=== PATIENT | male | born 1975 | race Two or more races ===

== ENCOUNTER 2016-06-14 10:07 | Emergency (ER) | payer MEDICAID ==
[2016-06-14] MEDS ORDERED: NS 1,000 ML IV ONE ×2 (11:05→11:58)
[2016-06-14] MEDS ORDERED: ONDANSETRON 4 MG/2 ML VIAL IVP ONE (11:05)
--- NOTE | 2016-06-14 11:12 | EDPHY ---
H & P Stated Complaint: coughing yellow mucuc, sob,body aches HPI/ROS: CHIEF COMPLAINT: Cough, congestion, nausea, right finger pain HISTORY OF PRESENT ILLNESS: several days of cough, congestion, body aches, chills, nausea, vomiting. Symptoms started abruptly. They have been constant ever since. No improvement with [id number]-[id number] medications including antitussives. No neck pain or stiffness. No rashes. No chest pain. No abdominal pain despite the nausea and vomiting. Also has secondary complaint of right finger pain. He says he tripped, landing awkwardly on it "about a week ago." there was moderate pain to the right finger. he says he "tried to fix it myself, you know?" he could not elaborate on this. He says that there is no numbness or tingling of the finger but it is painful and has difficulty straightening the finger. Worse with palpation or movement. Able to flex without limitation. No other associated complaints or modifying factors. REVIEW OF SYSTEMS: Ten systems reviewed and are negative unless otherwise noted in the HPI EXAMINATION General Appearance: Alert, no distress Head: normocephalic, atraumatic Eyes: Pupils equal and round, no conjunctival pallor or injection ENT, Mouth: Mucous membranes moist . Uvula midline. No erythema or edema. Neck: Normal inspection, supple, non-tender . Painless range of motion all planes. No rigidity. No meningismus. Respiratory: Lungs are clear on the left perla. There is rhonchi and sonorous breath sounds on the right side, upper lobes greater than lower lobe. No consolidation or diminishment. No wheezing and either side. Cardiovascular: Tachycardic rate of 104 beats per minute. No murmur. Pulses intact distally. Gastrointestinal: Abdomen is soft and nontender . No tympany rigidity. No CVA tenderness. Back: non-tender, no bony abnormalities Neurological: A&O, nonfocal, normal gait Skin: Warm and dry, no rash Extremities: nontender to the left upper extremity. The right upper extremity has tenderness to the right small finger. There is a flexor deformity of the right small finger PIP. Unable to extend the right finger from the PIP joint distally. Unable to force this passively. Neurovascular intact distal to the injury. Psychiatric: Mood and affect normal DIFFERENTIAL DIAGNOSES: Including but not limited to Influenza, viral illness, pneumonia, right finger fracture, right finger extensor deficit MDM: 11:10 a.m. cough, congestion flu-like symptoms with a secondary complaint of right small finger pain. Patient is actively vomiting in the room at the end of my examination. Originally asked for no laboratory studies or IV, given this he will consent to IV fluid. Chest x-ray has been ordered to rule out pneumonia. X-ray of the finger is also pending. He is in no acute distress. 12:00 p.m. notified by the RN that the patient had a brief episode of 87-88% on room air with good plethysmography. He has been placed on 2 L and remains in no acute distress. Vital signs are within normal limits on 2 L. 12:15 p.m. I have re-evaluated the patient. He is hemodynamically stable and still has the appearance of a viral illness. His influenza swab is negative, but I feel this is a false negative by history and examination. The right finger does exhibit a deficit of the extensor apparatus. I have paged hand surgery to discuss the case. This is over a week old and there is no fracture on the x- ray. 12:35 p.m. I discussed the case with the circulating nurse working with Dr. Bennett, who was scrubbed in to a case. They informed me that the patient can follow up in his office. Patient is to contact the office for an outpatient appointment. No further orders. 12:45 p.m. I have re-evaluated the patient. He has been off oxygen for 30 minutes. There is no desaturation below 91%. His examination is more consistent with influenza despite the negative influenza swab. Discharged home with steroid treatment here, symptomatic medications for home. He is follow up with primary care physician or return to the ER for any worsening symptoms. He is also to follow up with Dr. bennett regarding the right finger extensor deficit. Patient is comfortable with this plan, I have answered all his questions, he is discharged home in stable condition. SUPERVISION: This patient was independently evaluated without the aide of supervising physician. Source: Patient Exam Limitations: No limitations - Personal History Current Tetanus/Diphtheria Vaccine: Unsure Current Tetanus Diphtheria and Acellular Pertussis (TDAP): Unsure - Medical/Surgical History Hx Asthma: No Hx Chronic Respiratory Disease: No Hx Diabetes: No Hx Cardiac Disease: No Hx Renal Disease: No Hx Cirrhosis: No Hx Alcoholism: Yes Hx HIV/AIDS: No Hx Splenectomy or Spleen Trauma: No Other PMH: denies - Social History Smoking Status: Never smoked Constitutional: Initial Vital Signs Temperature (C) 98.1 F 06/14/16 10:16 Heart Rate 108 H 06/14/16 10:16 Respiratory Rate 20 06/14/16 10:16 Blood Pressure 115/84 H 06/14/16 10:16 O2 Sat (%) 94 06/14/16 10:16 O2 Delivery Mode Room Air O2 (L/minute) 2 Allergies/Adverse Reactions: acetaminophen [From Tylenol] Allergy (Verified 09/29/15 14:57) Home Medications: Medication Instructions Recorded oxyCODONE/APAP 5/325 [Percocet 1 - 2 tab PO Q6H PRN #12 tab 09/29/15 5/325] HYDROcodone/HOMATROPINE HYCODA 1 tsp PO Q4-6PRN PRN #120 ml 06/14/16 [Hycodan Syrup (*)] Ondansetron Odt [Zofran Odt 4 mg 4 mg PO Q6 PRN #12 tab 06/14/16 (*)] Medical Decision Making - Data Points Laboratory Results: Laboratory Results 06/14/16 11:04 06/14/16 11:04 06/14/16 06/14/16 06/14/16 11:04 11:04 11:04 WBC 7.67 10^3/uL 10^3/uL (3.80-9.50) RBC 5.26 10^6/uL 10^6/uL (4.40-6.38) Hgb 16.8 g/dL g/dL (13.7-17.5) Hct 47.5 % % (40.0-51.0) MCV 90.3 fL fL (81.5-99.8) MCH 31.9 pg pg (27.9-34.1) MCHC 35.4 g/dL g/dL (32.4-36.7) RDW 12.9 % % (11.5-15.2) Plt Count 247 10^3/uL 10^3/uL (150-400) MPV 10.1 fL fL (8.7-11.7) Neut % (Auto) 60.3 % % (39.3-74.2) Lymph % (Auto) 26.9 % % (15.0-45.0) [place] % (Auto) 11.1 % % (4.5-13.0) Eos % (Auto) 0.9 % % (0.6-7.6) Baso % (Auto) 0.1 % L % (0.3-1.7) Nucleat RBC Rel Count 0.0 % % (0.0-0.2) Absolute Neuts (auto) 4.63 10^3/uL 10^3/uL (1.70-6.50) Absolute Lymphs (auto) 2.06 10^3/uL 10^3/uL (1.00-3.00) Absolute Monos (auto) 0.85 10^3/uL H 10^3/uL (0.30-0.80) Absolute Eos (auto) 0.07 10^3/uL 10^3/uL (0.03-0.40) Absolute Basos (auto) 0.01 10^3/uL L 10^3/uL (0.02-0.10) Absolute Nucleated RBC 0.00 10^3/uL 10^3/uL (0-0.01) Immature Gran % 0.7 % % (0.0-1.1) Immature Gran # 0.05 10^3/uL 10^3/uL (0.00-0.10) Sodium 144 mEq/L mEq/L (134-144) Potassium 4.0 mEq/L mEq/L (3.5-5.2) Chloride 106 mEq/L mEq/L (97-110) Carbon Dioxide 22 mEq/l mEq/l (22-31) Anion Gap 16 mEq/L mEq/L (8-16) BUN 7 mg/dL mg/dL (7-23) Creatinine 0.9 mg/dL mg/dL (0.7-1.3) Estimated GFR > 60 Glucose 102 mg/dL H mg/dL (70-100) Calcium 9.1 mg/dL mg/dL (8.5-10.4) Lipase 300.0 IU/L IU/L (23-300) Influenza Typ A,B (DFA) NEGATIVE FOR FLU (NEGATIVE) Medications Given: Discontinued Medications Albuterol (Proventil Neb) 3 ml IH EDNOW ONE Stop: 06/14/16 11:19 Last Admin: 06/14/16 11:35 Dose: 3 ml Sodium Chloride (Ns) 1,000 mls @ 0 mls/hr IV ONCE ONE PRN Reason: Wide Open Stop: 06/14/16 11:06 Last Admin: 06/14/16 11:05 Dose: 1,000 mls Sodium Chloride (Ns) 1,000 mls @ 0 mls/hr IV ONCE ONE PRN Reason: Wide Open Stop: 06/14/16 11:59 Last Admin: 06/14/16 12:00 Dose: 1,000 mls Ibuprofen (Motrin) 600 mg PO EDNOW ONE Stop: 06/14/16 11:20 Last Admin: 06/14/16 11:35 Dose: 600 mg Ondansetron HCl (Zofran) 4 mg IVP EDNOW ONE Stop: 06/14/16 11:06 Last Admin: 06/14/16 11:05 Dose: 4 mg Departure - Departure Disposition: Home, Routine, Self-Care Clinical Impression: Influenza-like illness, Rupture of extensor tendon of finger, Bronchitis Condition: Good Instructions: Influenza (ED), Tendon Rupture (ED) Additional Instructions: Follow-up with hand surgeon Dr. best over the right finger injury. Follow up with primary care physician for remaining complaints. Return to ER for worsening symptoms, any chest pain or persistent vomiting. Referrals: Sonya High MD [Medical Doctor] - As per Instructions NONE *PRIMARY CARE P,. [Primary Care Provider] - As per Instructions Herbie Bennett MD [Medical Doctor] - As per Instructions Prescriptions: HYDROcodone/HOMATROPINE HYCODA [Hycodan Syrup (*)] 1 tsp PO Q4-6PRN PRN #120 ml PRN Reason: Cough, Mild Ondansetron Odt [Zofran Odt 4 mg (*)] 4 mg PO Q6 PRN #12 tab PRN Reason: Nausea/Vomiting, Use 1st
[2016-06-14] MEDS ORDERED: ALBUTEROL 3 ML DEYVIAL IH ONE (11:18)
[2016-06-14] MEDS ORDERED: IBUPROFEN 600 MG TAB PO ONE (11:19)
[2016-06-14 11:20] LABS: % IMMATURE GRANULYOCYTES 0.7 % (0.0-1.1); ABSOLUTE IMMATURE GRANULOCYTES 0.05 10^3/uL (0.00-0.10); ADD DIFF? NO; ADD MORPH? NO; ADD SCAN? NO; ATYPICAL LYMPHOCYTE FLAG 10 (0-99); FRAGMENT RBC FLAG 0 (0-99); HEMATOCRIT 47.5 % (40.0-51.0); HEMOGLOBIN 16.8 g/dL (13.7-17.5); LEFT SHIFT FLG 0 (0-99); LIPEMIA HEMOLYSIS FLAG 90 (0-99); MEAN CELL HEMOGLOBIN 31.9 pg (27.9-34.1); MEAN CELL HEMOGLOBIN CONCENTR. 35.4 g/dL (32.4-36.7); MEAN CELL VOLUME 90.3 fL (81.5-99.8); MEAN PLATELET VOLUME 10.1 fL (8.7-11.7); PLATELET CLUMPS FLAG 0 (0-99); PLATELET COUNT 247 10^3/uL (150-400); RED BLOOD CELL COUNT 5.26 10^6/uL (4.40-6.38); RED CELL DISTRIBUTION WIDTH 12.9 % (11.5-15.2)
[2016-06-14 11:36] LABS: ANION GAP 16 mEq/L (8-16); CALCIUM 9.1 mg/dL (8.5-10.4); CARBON DIOXIDE 22 mEq/l (22-31); CHLORIDE 106 mEq/L (97-110); CREATININE 0.9 mg/dL (0.7-1.3); GLOMERULAR FILTRATION RATE > 60; GLUCOSE 102 mg/dL (70-100); SODIUM 144 mEq/L (134-144)
[2016-06-14 11:37] VITALS: TEMP 98.2
[2016-06-14] MEDS ORDERED: DEXAMETHASONE 10 MG/ML VIAL IVP ONE (12:27)
[2016-06-14 12:47] VITALS: BP 122/71; PULSE 94; RESP 18; O2SAT 91
== END 2016-06-14 13:00 | disposition home or self-care (01) ==
DX: J11.1 Influenza due to unidentified influenza virus with other respiratory manifestations (principal); J40 Bronchitis, not specified as acute or chronic; S56.417A Strain of extensor muscle, fascia and tendon of right little finger at forearm level, initial encounter; W18.41XA Slipping, tripping and stumbling without falling due to stepping on object, initial encounter
CPT/HCPCS: 96374; J2405

== ENCOUNTER 2017-04-26 19:38 | Inpatient (IN) | payer MEDICAID ==
--- NOTE | 2017-04-26 19:51 | EDPHY ---
H & P Time Seen by Provider: 04/26/17 19:47 HPI/ROS: CHIEF COMPLAINT: Full trauma activation, ground level fall, neck pain, back pain, right-sided weakness HISTORY OF PRESENT ILLNESS: The patient presents the ED as a full trauma activation. The patient reportedly was being booked into skilled nursing when he experienced a ground level fall onto his back. He did not lose consciousness. The patient was brought in as a full trauma activation secondary to complaints of paresthesias in his arms and legs. Upon arrival in the emergency department the patient reports primarily right-sided weakness and paresthesias. The patient complains of a mild occipital headache. He denies any chest or abdominal pain. The patient denies significant past medical history. The patient does not take blood thinners. REVIEW OF SYSTEMS: A comprehensive 10 point review of systems is otherwise negative aside from elements mentioned in the history of present illness. Source: Patient Exam Limitations: No limitations - Medical/Surgical History Hx Asthma: No Hx Chronic Respiratory Disease: No Hx Diabetes: No Hx Cardiac Disease: No Hx Renal Disease: No Hx Cirrhosis: No Hx Alcoholism: Yes Hx HIV/AIDS: No Hx Splenectomy or Spleen Trauma: No Other PMH: denies - Social History Smoking Status: Never smoked - Physical Exam Exam: General Appearance: Alert, no distress Head: Atraumatic Eyes: Pupils equal, round, reactive ENT, Mouth: No hemotympanum, no oral trauma Neck: Cervical collar prior upon arrival, tenderness to palpation throughout the cervical spine Respiratory: No chest wall tender, subcutaneous air, lungs clear bilaterally Cardiovascular: Regular rate and rhythm Abdomen: Abdomen is soft and nontender, pelvis stable Skin: No lacerations, No abrasion Back: When patient was rolled with spinal mobilization tenderness to palpation was noted in the T and L-spine Extremities: Nontender, full range of motion Neurological: Alert and oriented x4, patient has 5/5 strength in his left upper lower extremity, patient has 4/5 strength in his right upper extremity. The patient reports decreased sensation to sharp touch in the right upper and lower extremity. Allergies/Adverse Reactions: acetaminophen [From Tylenol] Allergy (Verified 09/29/15 14:57) Home Medications: Medication Instructions Recorded oxyCODONE/APAP 5/325 [Percocet 1 - 2 tab PO Q6H PRN #12 tab 09/29/15 5/325] HYDROcodone/HOMATROPINE HYCODA 1 tsp PO Q4-6PRN PRN #120 ml 06/14/16 [Hycodan Syrup (*)] Ondansetron Odt [Zofran Odt 4 mg 4 mg PO Q6 PRN #12 tab 06/14/16 (*)] Medical Decision Making - Diagnostics Imaging Results: Imaging Impressions Cervical Spine CT 04/26/17 19:48 Impression: Head CT: 1. No acute intracranial abnormalities. Cervical Spine: 1. Vertically oriented lucency through the right lateral mass of C7 may represent a subtle nondisplaced fracture. 2. Cannot exclude ligament, spinal cord and/or vascular abnormalities on this exam. If there is persistent pain or neurologic deficit, consider MRI and/or flexion and extension radiographs of the cervical spine. Dr. Ashford discussed these findings in person with surgeon Dr. Macario on 2017 immediately following the scan. Head CT 04/26/17 19:48 Impression: Head CT: 1. No acute intracranial abnormalities. Cervical Spine: 1. Vertically oriented lucency through the right lateral mass of C7 may represent a subtle nondisplaced fracture. 2. Cannot exclude ligament, spinal cord and/or vascular abnormalities on this exam. If there is persistent pain or neurologic deficit, consider MRI and/or flexion and extension radiographs of the cervical spine. Dr. Ashford discussed these findings in person with surgeon Dr. Macario on 2017 immediately following the scan. Lumbar Spine CT 04/26/17 19:48 Impression: 1. No acute osseous abnormalities in the thoracic or lumbar spine. 2. Pulmonary nodule measuring 4 mm in the right upper lobe. Per Fleischner Society 2017 guidelines, if this patient is low risk, no routine follow-up is needed. If this patient is high-risk, consider follow-up CT chest in 12 months. 3. Bilateral nephrolithiasis, as above. Dr. Ashford discussed these findings in person with surgeon Dr. Macario on 2017 immediately following the scan. Thoracic Spine CT 04/26/17 19:48 Impression: 1. No acute osseous abnormalities in the thoracic or lumbar spine. 2. Pulmonary nodule measuring 4 mm in the right upper lobe. Per Fleischner Society 2017 guidelines, if this patient is low risk, no routine follow-up is needed. If this patient is high-risk, consider follow-up CT chest in 12 months. 3. Bilateral nephrolithiasis, as above. Dr. Ashford discussed these findings in person with surgeon Dr. Macario on 2017 immediately following the scan. Procedures: Procedure: Foreign body removal Indication: Removal of metallic foreign body to facilitate MRI imaging Description: After anesthesia with 1% lidocaine with epinephrine in a 1 cm incision was made over the patient facial piercing. I was able to remove the facial piercing in post in its entirety. The patient tolerated the did well. The incision was then closed with Dermabond. ED Course/Re-evaluation: The patient is brought to the emergency department as a full trauma activation. The patient was met by myself and Dr. Macario upon arrival. The patient had a ground level fall at the skilled nursing this evening. He complained of diffuse pain in his cervical spine, thoracic spine and lumbar spine. The patient reported decreased sensation to light touch in his right arm and leg. He also had weakness in his right arm and leg. Patient denies prior history of neurologic disease. He was noted to have some mild weakness on exam. The patient was placed in a cervical collar. His vital signs are stable upon arrival. The patient was taken emergently for CT scan of the head cervical spine, thoracic spinal lumbar spine. The only finding was the possibility of a nondisplaced cervical fracture. The patient was brought back to the emergency department and continue to exhibit symptoms of right-sided wrist. Further workup of his acute neurologic condition included an MRI of his brain, cervical spine and MR angiogram of his cervical vessels. The patient will be fitted to the trauma service this evening for further evaluation of his back pain an acute neurologic symptoms. The patient was admitted by Dr. Macario to the intensive care unit. MR imaging is currently pending. Prior to go to the MRI machine I did have to remove a facial piercing. The patient verbally consented to this. The procedure was performed by myself without complication after anesthesia with lidocaine with epinephrine under sterile conditions. Critical Care Time: Critical care time exclusive of procedures and exclusive of the PA's time was 35 minutes, performed by myself, Melecio Aguilar MD. The patient is brought in as a full trauma activation with acute back pain with neurologic findings of numbness or weakness. The patient required emergent CT and MRI imaging. The patient will be admitted to the intensive care unit under the care of the trauma service. - Data Points Laboratory Results: Laboratory Results 04/26/17 19:30 04/26/17 19:30 04/26/17 04/26/17 19:30 19:30 WBC 9.09 10^3/uL 10^3/uL (3.80-9.50) RBC 5.72 10^6/uL 10^6/uL (4.40-6.38) Hgb 18.1 g/dL H g/dL (13.7-17.5) Hct 50.9 % % (40.0-51.0) MCV 89.0 fL fL (81.5-99.8) MCH 31.6 pg pg (27.9-34.1) MCHC 35.6 g/dL g/dL (32.4-36.7) RDW 12.8 % % (11.5-15.2) Plt Count 273 10^3/uL 10^3/uL (150-400) MPV 10.1 fL fL (8.7-11.7) Neut % (Auto) 64.1 % % (39.3-74.2) Lymph % (Auto) 26.7 % % (15.0-45.0) [place] % (Auto) 6.9 % % (4.5-13.0) Eos % (Auto) 0.7 % % (0.6-7.6) Baso % (Auto) 0.4 % % (0.3-1.7) Nucleat RBC Rel Count 0.0 % % (0.0-0.2) Absolute Neuts (auto) 5.82 10^3/uL 10^3/uL (1.70-6.50) Absolute Lymphs (auto) 2.43 10^3/uL 10^3/uL (1.00-3.00) Absolute Monos (auto) 0.63 10^3/uL 10^3/uL (0.30-0.80) Absolute Eos (auto) 0.06 10^3/uL 10^3/uL (0.03-0.40) Absolute Basos (auto) 0.04 10^3/uL 10^3/uL (0.02-0.10) Absolute Nucleated RBC 0.00 10^3/uL 10^3/uL (0-0.01) Immature Gran % 1.2 % H % (0.0-1.1) Immature Gran # 0.11 10^3/uL H 10^3/uL (0.00-0.10) Sodium 144 mEq/L mEq/L (135-145) Potassium 4.4 mEq/L mEq/L (3.5-5.2) Chloride 106 mEq/L mEq/L (97-110) Carbon Dioxide 20 mEq/l L mEq/l (22-31) Anion Gap 18 mEq/L H mEq/L (8-16) BUN 6 mg/dL L mg/dL (7-23) Creatinine 0.8 mg/dL mg/dL (0.7-1.3) Estimated GFR > 60 Glucose 102 mg/dL H mg/dL (70-100) Calcium 9.9 mg/dL mg/dL (8.5-10.4) Departure - Departure Disposition: [facility] Inpatient Acute Clinical Impression: Cervical strain, Upper extremity weakness, Lumbar pain, Thoracic back pain Condition: Good
--- NOTE | 2017-04-26 19:54 | PDCONSULT ---
Collateral Clerk Note: 41 y/o male s/p fall at [facility] brought in as a FTA for neck pain/weakness. He is awake and oriented x 3. Full note dictated #[id number] S MD Amirah, FACS
[2017-04-26] MEDS ORDERED: SKIN ADHESIVE (DERMABOND) 1 EACH TP ONE (20:35)
[2017-04-26 20:43] LABS: PLATELET COUNT 273 10^3/uL (150-400)
[2017-04-26] MEDS ORDERED: GADOBUTROL 10 ML VIAL IVP ONE (20:54)
[2017-04-26] MEDS ORDERED: NALOXONE HCL 0.4 MG/ML INJ IVP PRN (20:56)
[2017-04-26] MEDS ORDERED: MIDAZOLAM 2 MG/2 ML VIAL ONE ×2 (21:05→22:00)
[2017-04-26] MEDS ORDERED: MIDAZOLAM 2 MG/2 ML VIAL IVP ONE ×2 (21:10→22:05)
--- NOTE | 2017-04-26 22:26 | GHP ---
[f rep st] HISTORY AND PHYSICAL MRI cervical spine and MRA/no fracture at C7, no cord injury, no vascular injury imp: neurologic findings without specific anatomic injury correlate rec: continue observation/serial neuro exams neurosurgery/neurology consults DATE OF ADMISSION: 04/26/2017 CHIEF COMPLAINT: Right-sided weakness and numbness status post fall. HISTORY OF PRESENT ILLNESS: The patient is a 41-year-old male who was being booked at the [facility] and sustained an unwitnessed fall in which he reports striking the back of his head and having loss of consciousness. Patient was brought to the emergency room as a full trauma activation by [facility] and had cervical spine immobilization without a C-collar because of the size of his neck. He was awake when I first met him in the emergency room and complaining of neck, upper back, and lumbar pain. Patient also reported numbness in both hands and feet, and weakness in the right lower extremity and right hand. PAST MEDICAL HISTORY: No major medical problems. MEDICATIONS: Chronic medications include oxycodone, hydrocodone. ALLERGIES: He has a reported allergy to Tylenol. SOCIAL HISTORY: Patient denies tobacco use. He does admit to drinking alcohol. Patient was being booked into the [facility], and his girlfriend and father posted bail for him, so he is no longer remaining incarcerated. FAMILY HISTORY: Noncontributory. REVIEW OF SYSTEMS: Patient reports neck and back pain; weakness in the right upper extremity, right lower extremity; and numbness in both hands and feet. He denies incontinence, nausea, vomiting, headaches, visual disturbances. He does have amnesia for the event. PHYSICAL EXAMINATION: GENERAL: Reveals a stoutly built middle-aged gentleman with piercings adjacent to his right eye, his lower lip, and his left nipple. HEENT: Patient has tenderness throughout the cervical spine. Pupils are 2 mm, round, reactive to light. His trachea is midline. There is no jugular venous distention. No crepitus of the neck. There is no external evidence of cranial trauma, laceration. TMs are clear. LUNGS: Clear with diminished breath sounds at both bases. HEART: Regular in rate and rhythm with mild tachycardia. ABDOMEN: Soft and nontender. PELVIS: Stable to anterior and lateral compression. BACK: Rolling the patient to his right side with in-line cervical mobilization reveals tenderness throughout the thoracic and lumbar spine without focal point tenderness. EXTREMITIES: Hands and feet are warm, dry, and well perfused. Pedal pulses, radial and ulnar pulses are palpable and symmetrical. NEURO: Patient is oriented x3. Cranial nerves 2-12 are intact. Patient has weakness in the right upper extremity, biceps and triceps, as well as forearm musculature. He was able to move his right thumb. He has weakness in abduction of his wrist. Patient is able to minimally move his right leg with flexion. He has no sensation to sharp stimulation between the anterior axillary line on the right side and the foot on the right side. No painful withdrawal to lower extremity painful stimulus. Patient has a greater strength in the left upper extremity with good hand attendant honor bar; shoulder shrug; biceps and triceps strength; and is able to lift his left leg off the bed. Deep tendon reflexes are symmetrical bilaterally in the lower extremities and diminished in the right upper extremity. LABORATORY STUDIES: WBC is 9.09, hemoglobin 18, hematocrit 50.9, platelets 273, 000. Sodium 144, potassium 4.4, chloride 106, bicarb 20, BUN 6, creatinine 0.8 , glucose 102. Calcium 9.9. CT scan of the cervical spine, thoracic and lumbar spine, were reviewed with Dr. Ashford. There is a subtle lucency in the lateral mass on the right side of C7 without corresponding pedicle or vertebral body fracture. There is no evidence of spinous process fracture. There is no fracture of the lumbar or thoracic spine with some anterior degenerative changes. There is a subcentimeter right upper lobe pulmonary nodule and nonocclusive bilateral nephrolithiasis. MRI of the cervical spine is pending at time of dictation. IMPRESSION: 1. Status post unwitnessed fall. 2. Partial right hemiparesis with sensory loss. 3. Closed head injury with brief loss of consciousness. No evidence of intracranial hemorrhage on CT. RECOMMENDATIONS: Patient will remain in cervical spine immobilization. He was transported to MRI for further workup and evaluation. I notified , who was aviation neuropsychologist for Neurosurgery, and will inform him of the results of the MRI. Patient will be admitted to the intensive care unit for intensive monitoring, neuro and vascular, and will maintain mean arterial pressure of 90 or greater. /[id number]/MODL MTDD
[2017-04-26] MEDS: LR 1,000 ML IV SCH (23:41)
[2017-04-27] MEDS: FAMOTIDINE 20 MG/NACL 50 ML IV SCH ×3 (00:25→21:00)
[2017-04-27] MEDS: LR 1,000 ML IV SCH (08:49)
--- NOTE | 2017-04-27 09:11 | GCON ---
[f rep st] CONSULTATION NEUROSURGERY CONSULTATION CHIEF COMPLAINT: Right-sided weakness after a witnessed fall. HPI: The patient is a 41-year-old male, who presented to the emergency room as a full trauma evacuation. Per report, the [facility] when he experienced a ground level fall onto his back. There was no loss of consciousness. He complained of paresthesias, and numbness, and tingling with burning in his arms and legs. Upon arrival in the emergency room, he was complaining of right-sided weakness and paresthesias. He had a slight headache. The patient has undergone imaging. There has been a question of a cervical spine fracture. Given his weakness, the neurosurgery service was subsequently consulted. This morning the patient is resting in bed. He states that he only has some tingling in his right foot at this time, along with some low back pain. He denies any shooting pain in his arms or legs, any headache, any nausea or vomiting. He does still feel weaker in his right arm and leg. He denies any other medical problems. REVIEW OF SYSTEMS: Please see above mentioned in the HPI. PAST MEDICAL HISTORY: Negative. MEDICATIONS: Chronic pain medications to include oxycodone and hydrocodone. ALLERGIES: The patient is allergic to Tylenol. SOCIAL HISTORY: The patient denies tobacco use. He does use alcohol. Marijuana screen is positive in his lab work. [facility] His girlfriend and father posted bail for him. FAMILY HISTORY: The patient's father is living. PHYSICAL EXAMINATION: VITAL SIGNS: Blood pressure 116/85, heart rate 80, respirations 15, O2 sat is 100% on 2 L of oxygen via nasal cannula. GENERAL: This is a well-developed, well-nourished, male patient. He is in no acute distress. NEURO: His cranial nerves 2-12 are grossly intact. His eyes are PERRLA. His extra movements are intact. He does have slight nystagmus when examining his extraocular movements. His tongue protrudes midline. His palate elevates symmetrically. He has intact sensation over his face. He is intact to light finger scratch bilaterally. He has symmetric shoulder shrug bilaterally. His tongue protrudes midline. Motor examination of his right hand process tank tender is approximately 4/5. Left hand process tank tender is 5/5. His left biceps and triceps are approximately 4+/5. Left biceps triceps are approximately 5/5. He has 5/5 bilateral deltoids. Motor examination of the bilateral lower extremities, hip flexion on the right is approximately 4/5. Hip flexion on the left is 5/5. Flexion and extension of the knee on the right is approximately 4/ 5, on the left is 5/5. Plantar flexion is 5/5 bilaterally. Dorsiflexion on the right is approximately 4/5. Dorsiflexion on the left is 5/5. He has absent patellar reflexes. No Babinski. He states that he does have some tingling in his right lower extremity. Otherwise, sensation is intact throughout the normal dermatomal distributions of his body. LABORATORY: White blood cells 9.09, red blood cells 5.72, hemoglobin 18.1, hematocrit 50.9, RDW is 12.8, platelet count is 273, sodium 144, potassium 4.4, chloride 106, carbon dioxide 20, anion gap 18, BUN 6, creatinine 0.8, GFR greater than 60, glucose 102, calcium 9.9. Toxicology opiates is pending. Barbiturates negative. Fenethylline negative. Amphetamines negative. Benzodiazepines greater than 8,000. Cocaine negative. THC 79. IMAGING: CT of the cervical spine without contrast, vertically oriented lucency through the right lateral mass of C7, may represent a subtle nondisplaced fracture. Cannot exclude ligament, spinal cord and/or vascular abnormality on this exam. If there is persistent pain or neurological deficit, consider MRI and/or flexion-extension radiographs of the cervical spine. Head CT no acute intracranial abnormalities. Lumbar spine CT, no acute osseous abnormalities in the thoracic or lumbar spine. Pulmonary nodule measuring 4 mm in the right upper lobe. Per Fleischner Society 2017 Guidelines, this patient is low risk. No routine followup is needed. If the patient is high risk, consider followup CT chest in 12 months. Bilateral nephrolithiasis as above. Cervical spine MRI, no acute abnormalities. Center disk protrusions at C3, C4 and C5, which result in mild canal stenosis. No fractures are identified. Neck MRA, no acute abnormalities. Brain MRI, no acute intracranial abnormalities. IMPRESSION: This is a 41-year-old male patient, status post fall with some right-sided weakness with no acute findings on imaging workup. PLAN: I have seen and examined the patient this morning. He does still have some persistent weakness in his right upper and lower extremity. However, his imaging findings do not show any evidence of spinal cord injury or contusion. At this time, I would recommend the patient work with therapies and working on advancing his activity. I have discussed with the patient with Dr. Alfonso Whatley , who will be in to see the patient later today. At this time, there is currently no indication for neurosurgical intervention in the way of an operation. Please contact the neurosurgery service with any additional questions or concerns. /[id number]/MODL MTDD
[2017-04-27] MEDS: ONDANSETRON 4 MG/2 ML VIAL IVP PRN ×2 (10:16→19:25)
--- NOTE | 2017-04-27 12:39 | ASMTCMCOM ---
CM Note CM Note Notes: Patient admitted after having R-sided weakness after falling. His imaging does not show any evidence of spinal cord injury or contusion. Neurosurgery consulted and signed off. Patient is supported by his family and girlfriend. PT/OT are recommending home. CM available if needs change. Date Signed: 04/27/2017 12:38 PM Electronically Signed By:Sandy Corey RN
--- NOTE | 2017-04-27 13:43 | SOAPPROG ---
SOAP Progress Note Assessment/Plan: Assessment: Plan: Subjective: hd 2 vss, af neck tender- c coller left in place lungs clear heart nml abd soft neuro remains weak, right worse than left. no obvious explanation.] neurosurg to see later today. ct, mri not demonstrative of a lesio which would explian he s deficets. Objective: Vital Signs Temp Pulse Resp BP Pulse Ox 36.8 C 84 22 H 121/86 H 95 04/27/17 12:00 04/27/17 12:00 04/27/17 12:00 04/27/17 12:00 04/27/17 12:00 04/26/17 04/27/17 04/28/17 05:59 05:59 05:59 Intake Total 1900 Output Total 1000 Balance 900 ICD10 Worksheet Patient Problems: Problems Problem Status Onset Cervical strain Acute Lumbar pain Acute Thoracic back pain Acute Upper extremity weakness Acute
[2017-04-27] MEDS: oxyCODONE IR 5 MG TAB PO PRN (18:42)
[2017-04-27] MEDS: LORazepam 2 MG/ML INJ IVP PRN (19:25)
[2017-04-28] MEDS: oxyCODONE IR 5 MG TAB PO PRN ×2 (01:35→08:04)
[2017-04-28] MEDS: LORazepam 2 MG/ML INJ IVP PRN (04:00)
--- NOTE | 2017-04-28 07:08 | NEUSURGPN ---
Assessment/Plan: A: 41 yo M s/p fall with RUE/RLE weakness, now improved. Negative imaging work up. P: -C spine cleared clinically and radiographically, only neck soreness. No pain with palpation or with AROM -PT/OT recommending home -MRIs and CTs reviewed yesterday, no concerning findings. Questionable C7 facet fx is not present on MRI. -OK for DC from NS standpoint -F/u on an as needed basis -D/w Dr Whatley -Please call NS with any questions or concerns Subjective: Pt resting in bed, states strength is improved. Denies neck pain, only soreness. Objective: AAOx3 NAD VSS No droop, pupils equal MAEx4 Motor 5/5 BUE/BLE +LT C spine non-tender to palpation No pain with AROM of cervical spine Urinary Catheter in Place: No - Physician Discussed Patient with Dr.: Whatley Neurosurgery Physical Exam - Vitals, I&O, Labs I and O 04/27/17 04/28/17 04/29/17 05:59 05:59 05:59 Intake Total 1900 3185 Output Total 1000 Balance 900 3185 Weight 117.934 kg Intake: Oral (ml) 0 2000 IV Intake (ml) 900 IV Infused (ml) 1000 1185 Lr 1,000 ml @ 125 mls/hr 1185 IV CONT DAMI Rx#: [id number] Output: Urine (ml) 500 Urinal 500 Emesis (ml) 500 Other: Number of Voids Toilet 2 Number of Stools Urinal 0 Vital Signs Temp Pulse Resp BP Pulse Ox 37.1 C 78 16 118/79 92 04/28/17 00:00 04/28/17 04:00 04/28/17 04:00 04/28/17 04:00 04/28/17 04:00 ICD10 Worksheet Patient Problems: Problems Problem Status Onset Cervical strain Acute Lumbar pain Acute Thoracic back pain Acute Upper extremity weakness Acute
[2017-04-28] MEDS: FAMOTIDINE 20 MG/NACL 50 ML IV SCH (08:05)
[2017-04-28 08:12] VITALS: BP 111/81; PULSE 90; RESP 22; TEMP 98.2; O2SAT 97
--- NOTE | 2017-04-28 10:01 | TRAUMAPN ---
Assessment/Plan: s/p fall with presenting right hemiparesis CT neck and back are negative MRI/MRA brain and neck are negative for injury explaining hemiparesis Still sore PT/OT recommend home Residual numbness r 3rd, 4th and 5th fingers and right 5th toe to midfoot I have discussed the case with neurology who recommends visit as outpatient in 3 weeks (time frame if EMG would be needed) Oxy IR Quantity 6. No defined injury and I explained I would prefer him to use Tylenol and Ibuprofen I recommended he find a PCP as well S: Feeling better, walking halls, complains of numbness Objective: Vital Signs Temp Pulse Resp BP Pulse Ox 36.8 C 90 22 H 111/81 H 97 04/28/17 08:00 04/28/17 08:00 04/28/17 08:00 04/28/17 08:00 04/28/17 08:00 04/27/17 04/28/17 04/29/17 05:59 05:59 05:59 Intake Total 1900 3185 520 Output Total 1000 Balance 900 3185 520 Physical Exam - Physical Exam General Appearance: WD/WN, alert, no apparent distress EENT: PERRL/EOMI, normal ENT inspection, No scleral icterus (R), No scleral icterus (L), No hearing deficit Neck: full range of motion, supple, normal inspection Respiratory: chest non-tender, lungs clear, normal breath sounds Cardiac/Chest: regular rate, rhythm, No edema Abdomen: normal bowel sounds, non-tender, soft Back: Normal inspection Skin: normal color, warm/dry Extremities: normal range of motion Neuro/Psych: other (CN II-X1 intact. Some focal numbness on right 3-5th digits and r 5th toe)
--- NOTE | 2017-04-28 14:36 | GDS ---
[f rep st] DISCHARGE SUMMARY Date of Admission: 04/26/17 Date of Discharge: 04/28/2017 REASON FOR ADMISSION: Ground level fall onto back well being booked into long term causing partial right hemiparesis with sensory loss, neck pain and back pain. PRIMARY DIAGNOSIS: Transient partial right hemiparesis with sensory loss after fall. OTHER PERTINENT DIAGNOSIS: Cervical strain, lumbar and thoracic back pain. HOSPITAL COURSE: Worked up in the ER as a full trauma activation, head and C- spine immobilized, and underwent CT of the head, cervical spine, thoracic and lumbar spine with the findings of a possible subtle nondisplaced C7 fracture, bilateral nephrolithiasis and a 4 mm pulmonary nodule. No major osseous abnormalities. Further imaging was done, an MRI of the brain, C-spine and an MRA of the cervical vessels. The MRI showed no acute intracranial abnormalities. MRA of the neck showed no acute abnormalities. His pain was controlled throughout his stay. Hemiparesis resolved. He had some mild sensory loss that continued on the right 3-5th digits and R 5th toe. Conditions on Discharge 1) Ambulates independently with ease 2) Tolerates diet 3) Pain is controlled Prescriptions He was given 6 OxyIR for pain upon discharge and is to use Tylenol and ibuprofen. Follow up Case discussed with Neurology and they suggested follow up in 3 weeks for possible EMG testing if numbness has not resolved. I suggest establishing with a primary care provider. /[id number]/MODL MTDD
--- NOTE | 2017-04-28 17:39 | ASDISCHSUM ---
Discharge Information Plan Status:Home with No Needs Medically Cleared to Leave:04/27/2017 Discharge Date:04/28/2017 10:50 AM CM D/C Disposition:Home, Routine, Self-Care ADT D/C Disposition:Home, Routine, Self-Care Projected Discharge Date:04/28/2017 12:00 AM Transportation at D/C:Family Discharge Delay Reason: Follow-Up Date:04/28/2017 12:00 AM Discharge Slot: Final Diagnosis:Fall-R sided weakness Placement Information Patient Contact Information Contact Name:JUVENTINO Relationship:Father Address: Work Phone: City: [facility] Phone: [facility]/[place] Code: Email: Financial Information Financial Class: Primary Plan Desc:[employer] Primary Plan Number:[id number] Secondary Plan Desc: Secondary Plan Number: Assessment Information [facility] CM Progress Note CM Note CM Note Notes: Patient admitted after having R-sided weakness after falling. His imaging does not show any evidence of spinal cord injury or contusion. Neurosurgery consulted and signed off. Patient is supported by his family and girlfriend. PT/OT are recommending home. CM available if needs change. Date Signed: 04/27/2017 12:38 PM Electronically Signed By:Sandy Corey RN Case Management Discharge Plan Note Case Management Discharge Discharge Order Complete? Answers: Yes Followup Appointment 04/28/2017 12:00 AM Patient to Obtain Answers: Independently Medications Transportation Arranged Answers: Family/Friends Transport will Pick (Date 04/28/2017 12:00 AM & Time) Discharge Comments Notes: Patient discharged today, no needs Date Signed: 04/28/2017 05:38 PM Electronically Signed By:Nona Claudio LCSW Intervention Information
== END 2017-04-28 10:50 | disposition home or self-care (01) | DRG 86 ==
LOC: EDUNIT# → F2N 23:02
PROVIDERS: ADMIT Surgery; ATTEND Surgery
DX: S06.9X1A Unspecified intracranial injury with loss of consciousness of 30 minutes or less, initial encounter (principal); S16.1XXA Strain of muscle, fascia and tendon at neck level, initial encounter; M54.6 Pain in thoracic spine; M54.5 Low back pain; W18.30XA Fall on same level, unspecified, initial encounter; Y92.149 Unspecified place in prison as the place of occurrence of the external cause; Y99.8 Other external cause status; G81.91 Hemiplegia, unspecified affecting right dominant side; R20.0 Anesthesia of skin
CPT/HCPCS: 80307; 82947-QW; 92523-GN; 96374; 97116-GP; 97161-GP; 97165-GO; A9585; G0480; J2060; J2250; J2405